=== PATIENT | male | born 1990 | race Caucasian/White ===

== ENCOUNTER 2018-05-06 16:41 | Emergency (ER) | payer OTHER ==
[~2018-05-06] VITALS: Ht 180.3 cm; Wt 107.9 kg
[2018-05-06 16:50] VITALS: BP 146/88
[2018-05-06] MEDS ORDERED: CLIN150C2 PO (17:17)
== END 2018-05-06 17:31 | disposition home or self-care (01) ==
LOC: ER 16:41
DX: K04.7 Periapical abscess without sinus (principal)
CPT/HCPCS: 99283